=== PATIENT | female | born 1985 | race Caucasian/White ===

== ENCOUNTER 2023-03-11 08:45 | Emergency (ER) | payer OTHER ==
[~2023-03-11] VITALS: Ht 170 cm; Wt 74.3 kg
[2023-03-11 09:39] LABS: BASOPHILS # (AUTO) 0.1 10^3/uL (0.0-0.1); BASOPHILS % (AUTO) 1 % (0-10); EOSINOPHILS # (AUTO) 0.2 10^3/uL (0.0-0.3); EOSINOPHILS % (AUTO) 1 % (0-10); HEMATOCRIT 39 % (35-52); HEMOGLOBIN 13.6 g/dL (11.5-16.0); LYMPHOCYTES # (AUTO) 3.8 10^3/uL (1.0-4.0); LYMPHOCYTES % (AUTO) 28 % (12-44); MEAN CORPUSCULAR HEMOGLOBIN 30 pg (25-34); MEAN CORPUSCULAR HGB CONC 35 g/dL (32-36); MEAN CORPUSCULAR VOLUME 88 fL (80-99); MEAN PLATELET VOLUME 9.8 fL (9.0-12.2); MONOCYTES # (AUTO) 0.4 10^3/uL (0.0-1.0); MONOCYTES % (AUTO) 3 % (0-12); NEUTROPHILS # (AUTO) 8.9 10^3/uL (1.8-7.8); NEUTROPHILS % (AUTO) 66 % (42-75); PLATELET COUNT 355 10^3/uL (130-400); WHITE BLOOD COUNT 13.4 10^3/uL (4.3-11.0)
[2023-03-11 09:43] LABS: ALBUMIN 4.1 GM/DL (3.2-4.5)
[2023-03-11 09:44] LABS: POTASSIUM 3.6 MMOL/L (3.6-5.0)
[2023-03-11 09:45] LABS: CALCIUM 8.8 MG/DL (8.5-10.1)
[2023-03-11 09:47] LABS: BILIRUBIN,URINE NEGATIVE (NEGATIVE); CLARITY,URINE CLEAR; COLOR,URINE YELLOW; GLUCOSE, URINE (UA) NEGATIVE (NEGATIVE); KETONES,URINE NEGATIVE (NEGATIVE); LEUKOCYTE ESTERASE ,URINE NEGATIVE (NEGATIVE); NITRITE,URINE NEGATIVE (NEGATIVE); PH,URINE 7.5 (5-9); PROTEIN,URINE NEGATIVE (NEGATIVE)
[2023-03-11 09:48] LABS: BILIRUBIN,TOTAL 0.2 MG/DL (0.1-1.0)
[2023-03-11 09:50] LABS: CREATININE SERUM 0.74 MG/DL (0.60-1.30)
[2023-03-11 09:53] LABS: BACTERIA,URINE NEGATIVE /HPF; SQUAMOUS EPITHELIAL CELL,UR 0-2 /HPF
[2023-03-11] MEDS ORDERED: LORazepam 0.5 MG (ATIVAN) TABLET BC STA (10:44)
[2023-03-11] MEDS ORDERED: fentaNYL INJ 100 MCG/2 ML AMP IVP ONE (10:45)
--- NOTE | 2023-03-11 10:47 | ED Abdominal Pain ---
General Chief Complaint: Abdominal/GI Problems Stated Complaint: ABD PAIN Nursing Triage Note: PT AMB TO RM 4 WITH CC OF RIGHT LOWER ABD PAIN THAT STARTED THIS MORNING. PT WAS SEEN AT [facility] THIS MORNING AND WAS REFERED HERE. Source of Information: Patient Exam Limitations: No Limitations History of Present Illness Date Seen by Provider: Mar 11, 2023 Time Seen by Provider: 09:32 Allergies and Home Medications Allergies Coded Allergies: lamotrigine (Verified Allergy, Unknown, 03/11/23) Past Wehxbly-Fgnwcw-Uvejrw Hx Patient Social History Tobacco Use?: Yes Tobacco type used: Cigarettes Substance use?: No Alcohol Use?: Yes Alcohol Frequency: Once in a while Past Medical History Surgery/Hospitalization HX: gallbladder 2012, tubal ligation and hysterectomy 2011 Physical Exam Vital Signs Vital Signs - First Documented 03/11/23 08:55 Temp 35.9 Pulse 84 B/P (MAP) 122/78 (93) Pulse Ox 99 O2 Delivery Room Air Capillary Refill : Height/Weight/BMI Height: '" Weight: lbs. oz. kg; 25.00 BMI Method: Progress/Results/Core Measures Results/Orders Lab Results Laboratory Tests Test 03/11/23 09:35 03/11/23 09:44 Range/Units White Blood Count 13.4 H 4.3-11.0 10^3/uL Red Blood Count 4.50 3.80-5.11 10^6/uL Hemoglobin 13.6 11.5-16.0 g/dL Hematocrit 39 35-52 % Mean Corpuscular Volume 88 80-99 fL Mean Corpuscular Hemoglobin 30 25-34 pg Mean Corpuscular Hemoglobin Concent 35 32-36 g/dL Red Cell Distribution Width 12.1 10.0-14.5 % Platelet Count 355 130-400 10^3/uL Mean Platelet Volume 9.8 9.0-12.2 fL Immature Granulocyte % (Auto) 1 % Neutrophils (%) (Auto) 66 42-75 % Lymphocytes (%) (Auto) 28 12-44 % Monocytes (%) (Auto) 3 0-12 % Eosinophils (%) (Auto) 1 0-10 % Basophils (%) (Auto) 1 0-10 % Neutrophils # (Auto) 8.9 H 1.8-7.8 10^3/uL Lymphocytes # (Auto) 3.8 1.0-4.0 10^3/uL Monocytes # (Auto) 0.4 0.0-1.0 10^3/uL Eosinophils # (Auto) 0.2 0.0-0.3 10^3/uL Basophils # (Auto) 0.1 0.0-0.1 10^3/uL Immature Granulocyte # (Auto) 0.1 0.0-0.1 10^3/uL Sodium Level 141 135-145 MMOL/L Potassium Level 3.6 3.6-5.0 MMOL/L Chloride Level 106 98-107 MMOL/L Carbon Dioxide Level 22 21-32 MMOL/L Anion Gap 13 5-14 MMOL/L Blood Urea Nitrogen 12 7-18 MG/DL Creatinine 0.74 0.60-1.30 MG/DL Estimat Glomerular Filtration Rate 107 BUN/Creatinine Ratio 16 Glucose Level 88 70-105 MG/DL Calcium Level 8.8 8.5-10.1 MG/DL Corrected Calcium 8.7 8.5-10.1 MG/DL Total Bilirubin 0.2 0.1-1.0 MG/DL Aspartate Amino Transf (AST/SGOT) 25 5-34 U/L Alanine Aminotransferase (ALT/SGPT) 55 0-55 U/L Alkaline Phosphatase 80 40-136 U/L C-Reactive Protein High Sensitivity 0.08 0.00-0.50 MG/DL Total Protein 7.0 6.4-8.2 GM/DL Albumin 4.1 3.2-4.5 GM/DL Serum Test, Qualitative NEGATIVE NEGATIVE Urine Color YELLOW Urine Clarity CLEAR Urine pH 7.5 5-9 Urine Specific [employer] 1.010 L 1.016-1.022 Urine Protein NEGATIVE NEGATIVE Urine Glucose (UA) NEGATIVE NEGATIVE Urine Ketones NEGATIVE NEGATIVE Urine Nitrite NEGATIVE NEGATIVE Urine Bilirubin NEGATIVE NEGATIVE Urine Urobilinogen 0.2 < = 1.0 MG/DL Urine Leukocyte Esterase NEGATIVE NEGATIVE Urine RBC (Auto) NEGATIVE NEGATIVE Urine RBC NONE /HPF Urine WBC NONE /HPF Urine Squamous Epithelial Cells 0-2 /HPF Urine Crystals NONE /LPF Urine Bacteria NEGATIVE /HPF Urine Casts NONE /LPF Urine Mucus NEGATIVE /LPF Urine Culture Indicated NO My Orders Orders - CLAY MATTHEWS MD Cbc With Automated Diff (03/11/23 09:32) Comprehensive Metabolic Panel (03/11/23 09:32) Hs C Reactive Protein (03/11/23 09:32) Hcg,Qualitative Serum (03/11/23 09:32) Ua Culture If Indicated (03/11/23 09:32) Ed Iv/Invasive Line Start (03/11/23 09:32) Fentanyl Inj (Sublimaze Injection) (03/11/23 10:45) Ct Abdomen/Pelvis W (03/11/23 10:43) Lorazepam Tablet (Ativan Tablet) (03/11/23 10:44) Iohexol Injection (Omnipaque 350 Mg/Ml 1 (03/11/23 11:00) Received Contrast (Hold Metformin- Contr (03/11/23 11:00) Ns (Ivpb) (Sodium Chloride 0.9% Ivpb Bag (03/11/23 11:00) Us Non Ob Pelvis Comp/Transvag (03/11/23 11:51) Ketorolac Injection (Toradol Injection) (03/11/23 13:15) Medications Given in ED Current Medications Medications Dose Ordered Sig/Eve Route Start Time Stop Time Status Last Admin Dose Admin Fentanyl Citrate 50 mcg ONCE ONCE IVP 03/11/23 10:45 03/11/23 10:46 DC 03/11/23 10:52 50 MCG Iohexol 100 ml ONCE ONCE IV 03/11/23 11:00 03/11/23 11:01 DC 03/11/23 11:04 80 ML Sodium Chloride 100 ml ONCE ONCE IV 03/11/23 11:00 03/11/23 11:01 DC 03/11/23 11:04 80 ML Vital Signs/I&O 03/11/23 08:55 Temp 35.9 Pulse 84 B/P (MAP) 122/78 (93) Pulse Ox 99 O2 Delivery Room Air Blood Pressure Mean: 93 Departure Impression Primary Impression: Right lower quadrant pain Disposition: 01 HOME, SELF-CARE Condition: Improved Departure-Patient Inst. Decision time for Depature: 13:28 Referrals: EDUAR WILSON APRN (PCP) Primary Care Physician [facility]/L[facility] (Family) Primary Care Physician Patient Instructions: Abdominal Pain, Adult ED, Mesenteric Lymphadenitis Add. Discharge Instructions: The exact cause of your abdominal pain is uncertain. Mesenteric lymphadenitis caused by a viral illness is a strong possibility. Serious causes of abdominal pain such as appendicitis, ovarian torsion, bleeding ovarian cyst, bowel infection, etc. were not observed on your work-up in the emergency room today. You may treat pain with ibuprofen up to 600 mg every 6 hours as needed. Add Tylenol (acetaminophen) up to 1000 mg every 6 hours as needed for additional pain control. Consume primarily a clear liquid diet for the rest of the day. Gradually advance your diet with small quantities of bland food as tolerated. Return to the emergency room if you have worsening symptoms despite following these instructions. All discharge instructions reviewed with patient and/or family. Voiced understanding. CLAY MATTHEWS MD Mar 11, 2023 10:47
[2023-03-11] MEDS ORDERED: NS 100 ML (IVPB) BAG IV ONE (11:00)
[2023-03-11] MEDS ORDERED: IOHEXOL 350 MG/ML 100 ML (OMNIPAQUE 350) VIAL IV ONE (11:00)
[2023-03-11] MEDS ORDERED: HOLD METFORMIN - RECEIVED CONTRAST 20 ML VIAL IV SCH (11:00)
--- NOTE | 2023-03-11 11:23 | Diagnostic Imaging Report ---
EXAMINATION: CT abdomen and pelvis with intravenous contrast. TECHNIQUE: Multiple contiguous axial images were obtained through the abdomen and pelvis after the uneventful administration of intravenous contrast. All CT scans use one or more of the following dose optimizing techniques: automated exposure control, MA and/or KvP adjustment based on patient size and exam type or iterative reconstruction. HISTORY: RLQ pain. COMPARISON: None available. FINDINGS: Lung bases: The lung bases are clear. Solid organs: The liver is normal without focal lesion. The gallbladder is surgically absent. There is no biliary ductal dilation. Pancreas is normal. Spleen is normal. Adrenal glands are normal. The kidneys are normal without hydronephrosis. Bowel: The stomach and small bowel are normal without obstruction. The colon is normal. There are no secondary signs of acute appendicitis. Peritoneum: There is no intraperitoneal free fluid or free air. No suspicious lymphadenopathy. Vasculature: Normal without aneurysm. Musculoskeletal: No suspicious osseous lesion or compression fracture. Pelvis: The uterus is surgically absent. No adnexal mass. The urinary bladder is normal. IMPRESSION: No acute abnormality in the abdomen or pelvis. Dictated by: Dictated on workstation # [id number]
[2023-03-11] MEDS ORDERED: KETOROLAC 30 MG/ML VIAL IVP ONE (13:15)
--- NOTE | 2023-03-11 13:26 | Diagnostic Imaging Report ---
PROCEDURE: Pelvic complete, transabdominal and transvaginal sonogram. Limited pelvic doppler. TECHNIQUE: Multiple Real-time grayscale images were obtained of the pelvis in various projections transabdominally and transvaginally. Limited pelvic duplex images were obtained. HISTORY: Right lower quadrant abdominal pain. COMPARISON: None available. FINDINGS: The uterus is surgically absent. The right ovary has a normal appearance measuring 4.3 x 3.0 x 2.6 cm. Normal Doppler flow is seen within the right ovary. The left ovary is surgically absent. There is no free fluid within the pelvis. IMPRESSION: 1. Unremarkable appearance of the right ovary. 2. Surgical changes from hysterectomy and left oophorectomy. Dictated by: Dictated on workstation # [id number]
[2023-03-11 13:40] VITALS: BP 103/66
== END 2023-03-11 13:40 | disposition home or self-care (01) ==
LOC: EDUNIT# 08:45 → ER 08:46
DX: R10.31 Right lower quadrant pain (principal); F17.210 Nicotine dependence, cigarettes, uncomplicated
CPT/HCPCS: 36415; 74177; 76830; 76856; 80053; 81000; 84703; 85025; 86141